=== PATIENT | female | born 1950 | race Caucasian/White ===

== ENCOUNTER → 2017-03-25 | Outpatient (CLI) | payer OTHER ==
[~2017-03-25] MED LIST: ATORVASTATIN CA80 MG PO; AUGMENTIN875 MG PO; CLONAZEPAM2 MG PO; COLESTID1 GM PO; CRANBERRY400 MG PO; HYDROCODON-ACE1 EAC8 PO; LASIX20 MG PO; LISINOPRIL10 MG PO; MAGOX 400400 MG PO; METFORMIN HCL500 MG PO; POTASSIUM CHLO10 ME3 PO; PREMPRO 0.621 TABLE1 PO; RELAFEN750 MG PO; SERTRALINE HCL100 MG PO; ULTRACET1 TABLET PO; VITAMIN B122500 MCG PO; VITAMIN D31000 UNIT PO; XANAX1 MG PO; XARELTO20 MG PO
== END | disposition home or self-care (01) ==
DX: R26.2 Difficulty in walking, not elsewhere classified (principal); M17.12 Unilateral primary osteoarthritis, left knee; M25.562 Pain in left knee; M25.662 Stiffness of left knee, not elsewhere classified; M62.81 Muscle weakness (generalized)
CPT/HCPCS: 97110 GP; 97150 GO; 97161 GP; 97165 GO; G8978 GP; G8979 GP; G8980 GP; G8987 GO; G8988 GO; G8989 GO

== ENCOUNTER 2017-04-22 06:34 | Inpatient (IN) | payer OTHER ==
[~2017-04-22] VITALS: Ht 157.5 cm; Wt 65.7 kg
[~2017-04-22 06:34] MED LIST changes: +CRANBERRY 6,001 EACH PO; +IRON325 M1 PO; +KLOR-CON 1010 ME1 PO; +LIBRAX, CLI1 CAPSULE PO; +LIPITOR80 MG PO; +LYRICA50 MG PO; +PREMARIN0.625 MG PO; +VENTOLIN HFA18 GM IH; +ZOLOFT100 MG PO
[2017-04-22 07:53] LABS: POINT-OF-CARE METER ID UU14174212
[2017-04-22 07:57] VITALS: BP 119/42
[2017-04-22 07:59] VITALS: BP 119/42
[2017-04-22 12:01] LABS: POINT-OF-CARE METER ID UU13113675; POINT-OF-CARE USER ID 515036437
[2017-04-22 12:15] LABS: HEMATOCRIT 33.1 % (36.0-46.0); MCH 30.7 PG (29.0-34.0); MCHC 32.6 G/DL (30.0-36.0); MEAN PLAT.VOLUME 10.1 uM^3 (9.5-12.4); PLATELET COUNT 247 K/uL (156-360); RBC DIS.WIDTH-SD 41.6 % (39-53); RED BLOOD COUNT 3.52 M/uL (3.80-5.20); WHITE BLOOD COUNT 6.2 K/uL (4.1-10.2)
[2017-04-22 12:35] VITALS: BP 136/63
[2017-04-22 15:37] VITALS: BP 136/58
[2017-04-22 16:34] LABS: POINT-OF-CARE METER ID UU13113712
[2017-04-22 20:07] VITALS: BP 142/67
[2017-04-22 22:12] LABS: POINT-OF-CARE METER ID UU13113712
[2017-04-23 00:16] VITALS: BP 140/65
[2017-04-23 03:47] VITALS: BP 156/60
[2017-04-23 05:55] LABS: HEMATOCRIT 29.7 % (36.0-46.0)
[2017-04-23 06:17] LABS: ANION GAP 8 MEQ/L (2-14); CHLORIDE 101 MEQ/L (99-109); GFR ESTIMATE (CALCULATED) > 59 mL/min/; GLUCOSE 164 mg/dL (70-99); POTASSIUM 4.2 MEQ/L (3.7-5.4); SAMPLE HEMOLYSIS CHECK 0; SAMPLE ICTERIC CHECK 0; SAMPLE LIPEMIA CHECK 0; SODIUM 137 MEQ/L (136-147); UREA NITROGEN (BUN) 16 mg/dL (9-23)
[2017-04-23 08:00] VITALS: BP 135/60
[2017-04-23 11:37] LABS: POINT-OF-CARE METER ID UU13113712
[2017-04-23 12:13] VITALS: BP 140/62
[2017-04-23 15:56] VITALS: BP 138/62
[2017-04-23 16:21] LABS: POINT-OF-CARE METER ID UU13113712
[2017-04-23 19:40] VITALS: BP 147/57
[2017-04-24 00:09] VITALS: BP 133/60
[2017-04-24 06:31] LABS: MCV 92.2 FL (83-99)
[2017-04-24 07:18] LABS: POINT-OF-CARE METER ID UU14149397
[2017-04-24 08:08] VITALS: BP 143/60
[2017-04-24 11:13] LABS: CHLORIDE 103 mEq/L (99-109); POTASSIUM 3.9 mEq/L (3.7-5.4); SODIUM 141 mEq/L (136-147)
[2017-04-24 11:15] LABS: GLUCOSE 149 mg/dL (70-99)
[2017-04-24 11:16] LABS: ANION GAP 10 MEQ/L (2-14)
[2017-04-24 11:19] LABS: GFR ESTIMATE (CALCULATED) > 59 mL/min/
[2017-04-24 11:20] LABS: UREA NITROGEN (BUN) 11 mg/dL (9-23)
[2017-04-24 12:19] LABS: POINT-OF-CARE METER ID UU14149397
[2017-04-24 16:26] VITALS: BP 129/55
[2017-04-24 22:36] LABS: POINT-OF-CARE METER ID UU14188577
[2017-04-25 00:30] VITALS: BP 139/60
[2017-04-25 06:46] LABS: POINT-OF-CARE METER ID UU14149397
[2017-04-25] MEDS ORDERED: ENDOCET 5-3251 EACH PO (07:57)
[2017-04-25] MEDS ORDERED: LOVENOX40 MG/0.4 SC (07:57)
[2017-04-25 08:25] VITALS: BP 126/55
[2017-04-25 11:15] LABS: POINT-OF-CARE METER ID UU14188577
== END 2017-04-25 11:31 | DRG 470 ==
LOC: 2SOUTH 06:34 → 3EAST 06:34 → 3WEST 06:34 → 2SOUTH 08:40 → 3WEST 12:14 → 2SOUTH 13:58 → 3EAST 04-23 16:38 → 3WEST 04-23 16:41 → 3EAST 04-23 18:54
PROVIDERS: Orthopaedic Surgery; Physician Assistant
PROC: 0SRD0JA Replacement of Left Knee Joint with Synthetic Substitute, Uncemented, Open Approach (ICD-10-PCS; principal; 2017-04-22)
DX: M17.12 Unilateral primary osteoarthritis, left knee (principal); M25.562 Pain in left knee; I10 Essential (primary) hypertension; E11.9 Type 2 diabetes mellitus without complications; K21.9 Gastro-esophageal reflux disease without esophagitis; Z85.038 Personal history of other malignant neoplasm of large intestine; M06.9 Rheumatoid arthritis, unspecified; M21.00 Valgus deformity, not elsewhere classified, unspecified site
CPT/HCPCS: 71020; 73560; 80048; 82948; 85014; 85018; 85027; 99202; C1713; J0131; J0690; J1170; J1650; J1815; J2250; J2405; J7030; J7050

== ENCOUNTER 2017-05-04 12:31 | Emergency (ER) | payer OTHER ==
[~2017-05-04] VITALS: Ht 157.5 cm; Wt 60.2 kg
[~2017-05-04 12:31] MED LIST changes: +ENDOCET 5-3251 EACH PO; +LOVENOX40 MG/0.4 SC
[2017-05-04 13:35] LABS: EOSINOPHIL (%) 1.5 % (0-5); EOSINOPHIL COUNT 0.1 K/uL (0-0.3); HEMATOCRIT 31.2 % (36.0-46.0); IMMATURE GRANULOCYTE (%) 0.3 % (0.0-0.7); LYMPHOCYTE COUNT 2.1 K/uL (1.0-2.8); MCH 30.5 PG (29.0-34.0); MCHC 33.3 G/DL (30.0-36.0); MCV 91.5 FL (83-99); MEAN PLAT.VOLUME 9.6 uM^3 (9.5-12.4); MONOCYTE (%) 8.5 % (3-12); MONOCYTE COUNT 0.6 K/uL (0-0.8); NEUTROPHIL (%) 58.6 % (45-76); PLATELET COUNT 339 K/uL (156-360); RBC DIS.WIDTH-CV 11.9 % (11.8-14.6); RBC DIS.WIDTH-SD 39.4 % (39-53); RED BLOOD COUNT 3.41 M/uL (3.80-5.20); WHITE BLOOD COUNT 6.8 K/uL (4.1-10.2)
[2017-05-04 13:39] LABS: INTER. NORMALIZED RATIO 1.1; PROTHROMBIN TIME 10.9 (9.2-11.2); PTT 27.3 (25-32)
[2017-05-04 13:42] LABS: CHLORIDE 101 mEq/L (99-109); POTASSIUM 4.2 mEq/L (3.7-5.4); SODIUM 139 mEq/L (136-147)
[2017-05-04 13:43] LABS: GLUCOSE 101 mg/dL (70-99)
[2017-05-04 13:45] LABS: ANION GAP 9 MEQ/L (2-14)
[2017-05-04 13:47] LABS: GFR ESTIMATE (CALCULATED) > 59 mL/min/; TROP-I INTERPRETATION NEGATIVE; TROPONIN-I < 0.01 ng/mL (0.0-0.30)
[2017-05-04 13:48] LABS: UREA NITROGEN (BUN) 16 mg/dL (9-23)
[2017-05-04] MEDS ORDERED: XARELTO15 MG PO (16:08)
[2017-05-04 17:28] VITALS: BP 104/76
== END 2017-05-04 17:25 ==
LOC: EME 12:31
PROVIDERS: Emergency Medicine
DX: I26.99 Other pulmonary embolism without acute cor pulmonale (principal); R00.0 Tachycardia, unspecified; I48.91 Unspecified atrial fibrillation; Z79.01 Long term (current) use of anticoagulants; I10 Essential (primary) hypertension; E11.9 Type 2 diabetes mellitus without complications; Z79.84 Long term (current) use of oral hypoglycemic drugs; E78.5 Hyperlipidemia, unspecified; Z85.038 Personal history of other malignant neoplasm of large intestine; Z90.49 Acquired absence of other specified parts of digestive tract; Z96.652 Presence of left artificial knee joint
CPT/HCPCS: 71010; 71275; 80048; 84443; 84484; 85025; 85379; 85610; 85730; 93005; 99281; 99285; J7030

== ENCOUNTER 2017-05-22 18:18 | Emergency (ER) | payer OTHER ==
[~2017-05-22] VITALS: Ht 157.5 cm; Wt 66.3 kg
[~2017-05-22 18:18] MED LIST changes: +XARELTO15 MG PO
[2017-05-22] MEDS ORDERED: DIPROSONE 0.05%15 G1 TP (18:26)
[2017-05-22] MEDS ORDERED: MENEST0.625 MG PO (18:28)
[2017-05-22] MEDS ORDERED: VOLTAREN 1% GE100 GM TP (18:29)
[2017-05-22] MEDS ORDERED: LOMOTIL TABLET1 EACH PO (18:30)
[2017-05-22] MEDS ORDERED: LYRICA50 MG PO (18:32)
[2017-05-22 23:00] VITALS: BP 110/93
== END 2017-05-22 22:53 | disposition home or self-care (01) ==
LOC: EME 18:18
PROC: 0SSDXZZ Reposition Left Knee Joint, External Approach (ICD-10-PCS; principal; 2017-05-22)
DX: S83.105A Unspecified dislocation of left knee, initial encounter (principal); X50.9XXA Other and unspecified overexertion or strenuous movements or postures, initial encounter; E78.5 Hyperlipidemia, unspecified; E11.9 Type 2 diabetes mellitus without complications; Z79.84 Long term (current) use of oral hypoglycemic drugs; Z79.899 Other long term (current) drug therapy; Z96.652 Presence of left artificial knee joint
CPT/HCPCS: 73560; 73564; 99281; 99285

== ENCOUNTER 2018-05-09 22:27 | Observation (INO) | payer OTHER ==
[~2018-05-09] VITALS: Ht 160 cm; Wt 76.3 kg
[~2018-05-09 22:27] MED LIST changes: +DIPROSONE 0.05%15 G1 TP; +LOMOTIL TABLET1 EACH PO; +MENEST0.625 MG PO; +VOLTAREN 1% GE100 GM TP
[2018-05-09 23:12] LABS: HEMATOCRIT 28.2 % (36.0-46.0); HEMOGLOBIN 9.7 G/DL (11.9-15.5); MCH 31.9 PG (29.0-34.0); MCHC 34.4 G/DL (30.0-36.0); MCV 92.8 FL (83-99); PLATELET COUNT 243 K/uL (156-360); RBC DIS.WIDTH-CV 12.9 % (11.8-14.6); RBC DIS.WIDTH-SD 43.4 % (39-53); RED BLOOD COUNT 3.04 M/uL (3.80-5.20); WHITE BLOOD COUNT 6.6 K/uL (4.1-10.2)
[2018-05-09 23:31] LABS: CHLORIDE 110 mEq/L (99-109); SODIUM 146 mEq/L (136-147)
[2018-05-09 23:31] LABS: TROP-I INTERPRETATION NEGATIVE; TROPONIN-I 0.01 ng/mL (0.0-0.30)
[2018-05-09 23:39] LABS: CREATININE 0.9 mg/dL (0.6-1.3); GFR ESTIMATE (CALCULATED) > 59 mL/min/
[2018-05-09 23:42] LABS: GLUCOSE 131 mg/dL (70-99)
[2018-05-09 23:47] LABS: UREA NITROGEN (BUN) 17 mg/dL (9-23)
[2018-05-10 03:15] VITALS: BP 136/65
[2018-05-10 07:15] VITALS: BP 131/63
[2018-05-10 11:56] LABS: HDL CHOLESTEROL 77 MG/DL (Desirable>=50); LDL CHOLESTEROL 45 mg/dL (Desirable<100); NON-HDL CHOLESTEROL 69 mg/dL (Desirable<160); TOTAL CHOLESTEROL 146 mg/dL (Desirable<200); TRIGLYCERIDES 121 MG/DL (Normal: <150)
[2018-05-10 11:58] VITALS: BP 122/58
[2018-05-10 12:11] LABS: TROP-I INTERPRETATION NEGATIVE; TROPONIN-I 0.02 ng/mL (0.0-0.30)
[2018-05-10] MEDS ORDERED: CLONAZEPAM2 MG PO (12:58)
[2018-05-10] MEDS ORDERED: CENTRUM SILVER1 EAC4 PO (12:58)
[2018-05-10] MEDS ORDERED: XARELTO15 MG PO (13:03)
== END 2018-05-10 15:35 | disposition home or self-care (01) ==
LOC: EME 22:27 → EDOF 05-10 02:19 → 4SOUTH 05-10 02:19 → ENRESERV 05-10 02:23 → 4SOUTH 05-10 03:11
PROVIDERS: Physician Assistant Medical
DX: R07.89 Other chest pain (principal); R60.0 Localized edema; M79.89 Other specified soft tissue disorders; D64.9 Anemia, unspecified; I10 Essential (primary) hypertension; E78.5 Hyperlipidemia, unspecified; E11.9 Type 2 diabetes mellitus without complications; E53.8 Deficiency of other specified B group vitamins; E83.42 Hypomagnesemia; E87.6 Hypokalemia; F32.9 Major depressive disorder, single episode, unspecified; F41.9 Anxiety disorder, unspecified; K21.9 Gastro-esophageal reflux disease without esophagitis; M19.90 Unspecified osteoarthritis, unspecified site; L71.9 Rosacea, unspecified; M47.896 Other spondylosis, lumbar region; Z85.038 Personal history of other malignant neoplasm of large intestine; Z90.49 Acquired absence of other specified parts of digestive tract; Z90.710 Acquired absence of both cervix and uterus; Z96.652 Presence of left artificial knee joint; Z88.8 Allergy status to other drugs, medicaments and biological substances; Z82.49 Family history of ischemic heart disease and other diseases of the circulatory system; Z83.3 Family history of diabetes mellitus; Z86.718 Personal history of other venous thrombosis and embolism; Z79.84 Long term (current) use of oral hypoglycemic drugs
CPT/HCPCS: 71046; 80048; 80061; 83880; 84484; 85027; 93005; 93970; 99281; 99285; G0378; J1650